=== PATIENT | female | born 1990 | race Caucasian/White ===

== ENCOUNTER 2016-08-24 05:21 | Inpatient (IN) | payer MEDICAID ==
[~2016-08-24 05:21] MED LIST: BICITRA 30 ML CUP PO SCH; Lactated Ringers 1,000 ML IV ONE; Lactated Ringers 1,000 ML IV SCH; Pepcid 20 MG VIAL IV SCH; Reglan 10 MG/2 ML IV SCH
[2016-08-24 05:42] LABS: Mean Corpuscular Hemoglobin 33.5 pg (26-32); Mean Platelet Volume 10.2 fl (6-9.5); Platelet Count 139 K/mm3 (150-450); Red Blood Count 3.46 M/mm3 (4.1-5.4); Red Cell Distribution Width 13.5 % (11.5-14.0); White Blood Count 12.1 K/mm3 (4.0-10.5)
[2016-08-24 05:58] LABS: INR 0.89 (0.8-3.0)
[2016-08-24 06:01] LABS: PTT 28.4 SECONDS (25.3-37.0)
[2016-08-24 06:08] LABS: COMPLETE URINE MICROSCOPIC? YES; Collection Type CLEAN CATCH
[2016-08-24] MEDS ORDERED: KEFZOL 1 GM ONE (06:26)
[2016-08-24 06:31] LABS: Bacteria FEW /HPF (NEGATIVE); Epithelial Cells FEW /HPF (FEW)
[2016-08-24] MEDS ORDERED: BICITRA 30 ML CUP ONE (06:40)
[2016-08-24] MEDS ORDERED: Pitocin 10 UNITS/ML IV ONE (07:43)
[2016-08-24] MEDS ORDERED: PHENYLEPHRINE HCL IJ ONE (07:43)
[2016-08-24] MEDS ORDERED: OFIRMEV 100 ML IV ONE (07:54)
[2016-08-24] MEDS ORDERED: Astramorph-Pf 5 MG/10 ML IJ ONE (07:55)
[2016-08-24] MEDS ORDERED: SUBLIMAZE 100 MCG/2 ML IV ONE (07:55)
[2016-08-24] MEDS ORDERED: DEMEROL 50 MG ONE (09:23)
[2016-08-24] MEDS ORDERED: Mylicon 80MG PO PRN (10:00)
[2016-08-24] MEDS ORDERED: Anucort-HC SUPPOSITORY PR PRN (10:00)
[2016-08-24] MEDS ORDERED: Sodium Chloride 0.9% 10 ML FLUSH Syringe IJ PRN (10:00)
[2016-08-24] MEDS ORDERED: TYLENOL EXTRA STRENGTH 500 MG PO PRN (10:00)
[2016-08-24] MEDS ORDERED: CLARITIN 10 MG PO PRN (10:00)
[2016-08-24] MEDS ORDERED: Restoril 15 MG PO PRN (10:00)
[2016-08-24] MEDS ORDERED: HOLD NARCOTIC ANALGESICS AND SEDATIVES X24 HR MC PRN (10:00)
[2016-08-24] MEDS ORDERED: CORTISONE 1% CREAM TP PRN (10:00)
[2016-08-24] MEDS ORDERED: DEMEROL 50 MG IV PRN (10:00)
[2016-08-24] MEDS ORDERED: Ambien 10 MG PO PRN (10:00)
[2016-08-24] MEDS ORDERED: LANSINOH 40 GM TOP PRN (10:00)
[2016-08-24] MEDS ORDERED: Zofran 4 MG/2 ML VIAL IV PRN (10:00)
[2016-08-24] MEDS ORDERED: MORPHINE SULFATE 2 MG INJ IV PRN (10:00)
[2016-08-24] MEDS ORDERED: Dulcolax 10 MG SUPP PR PRN (10:00)
[2016-08-24] MEDS ORDERED: Dermoplast Spray TP PRN (10:00)
[2016-08-24] MEDS ORDERED: Narcan 0.4 MG/ML IV PRN (10:00)
[2016-08-24] MEDS ORDERED: TUCKS TP PRN (10:00)
[2016-08-24] MEDS: Dextrose 5%-Lr IV Solution 1000 ML 1,000 ML IV SCH ×2 (10:07→17:54)
--- NOTE | 2016-08-24 10:17 | OP ---
SURGERY DATE: 08/24/16 SURGERY TIME: 756 PREOPERATIVE DIAGNOSIS: 1. TERM INTRAUTERINE . 2. PREVIOUS . 3. UNDESIRED FERTILITY. POSTOPERATIVE DIAGNOSIS: SAME, DELIVERED. PROCEDURE: 1. Repeat lower uterine segment transverse incision section. 2. Bilateral tubal ligation by partial salpingectomy. SURGEON: Dr. Solares. ANESTHESIA: By spinal. BRIEF HISTORY: The patient is a 26 y/o WF presenting now for elective repeat . The patient was appraised of the risks of the procedure including risk of wound infection, bleeding requiring transfusion, possible injury to intraabdominal organs, and a failure rate of the tubal procedure of 1:300. The patient verbalized her understanding and desired to have the procedure performed. DESCRIPTION OF PROCEDURE: The patient was prepped and draped in the supine position. After adequate regional anesthesia was confirmed, a Pfannenstiel incision was made over the previous scar and carried down sharply through the fascia which was divided in a horizontal fashion. The rectus muscles were then bluntly and sharply dissected away from the overlying fascia and bluntly retracted laterally. The peritoneal cavity was entered. The bladder flap was developed and the bladder was retracted inferiorly. The uterus was scored in a horizontal fashion and entered in the midline. The wound was extended using bandage scissors. A WM infant was delivered through the abdominal wound. The cord was doubly clamped and divided between the clamps and the baby was handed off for further care. The placenta was then manually removed from the uterus. The uterus was exteriorized and wrapped in moist gauze. The wound edges were the reapproximated using 1-0 chromic suture in a running, interlocking fashion. Next, the left fallopian tube was identified and elevated with a Kelin clamp. A hemostat was passed through an avascular section of the mesosalpinx and the tube was tied on either side of the elevated area. The interceding section was then excised and the exposed edges of the tube were cauterized using the Bovie. The right tube was similarly treated. The cul-de-sac area was then swabbed clear of blood and amniotic fluid and the uterus was replaced in the abdominal cavity. Paracolic gutters were then also swabbed clear of blood and amniotic fluid. The peritoneum was then repaired using 3-0 chromic suture in a running fashion. The fascia was repaired using 0 Vicryl suture in a running fashion. The skin edges were reapproximated using 4-0 Vicryl suture in a subcuticular fashion and reinforced with Steri-strips. The sponge, needle, and instrument count was reported as correct at the end of the procedure and the patient was taken back to the recovery room in good condition.
[2016-08-24] MEDS ORDERED: Naropin 0.5% 30 ML VIAL IJ ONE (10:39)
[2016-08-24] MEDS ORDERED: EPINEPHRINE 1:1000 1 ML AMP IJ ONE (10:39)
[2016-08-24] MEDS ORDERED: Decadron 4 MG INJ IV ONE (10:39)
[2016-08-24] MEDS: Colace 100 MG PO SCH ×2 (10:50→22:17)
[2016-08-24] MEDS: FERREX 150 PO SCH (10:50)
[2016-08-24] MEDS: PERCOCET TABLET 5/325MG PO PRN ×3 (10:51→22:17)
[2016-08-24] MEDS: BENADRYL 50 MG/ML IV PRN ×2 (11:58→22:17)
[2016-08-24] MEDS: Nubain 10 MG/ML IV PRN (15:28)
[2016-08-25] MEDS: Dextrose 5%-Lr IV Solution 1000 ML 1,000 ML IV SCH (01:51)
[2016-08-25] MEDS: MOTRIN 400 MG PO PRN ×4 (01:51→21:32)
[2016-08-25] MEDS: PERCOCET TABLET 5/325MG PO PRN (04:21)
[2016-08-25] MEDS: Nubain 10 MG/ML IV PRN (04:21)
[2016-08-25 05:30] LABS: Mean Platelet Volume 10.8 fl (6-9.5); Platelet Count 127 K/mm3 (150-450); Red Blood Count 2.62 M/mm3 (4.1-5.4); Red Cell Distribution Width 13.4 % (11.5-14.0); White Blood Count 15.2 K/mm3 (4.0-10.5)
[2016-08-25 05:31] LABS: Mean Corpuscular Hemoglobin 33.5 pg (26-32)
[2016-08-25 06:04] VITALS: O2SAT 99
[2016-08-25] MEDS ORDERED: Phenergan 25 MG INJ IM PRN (08:00)
[2016-08-25] MEDS ORDERED: DEMEROL 75 MG IM PRN (08:00)
[2016-08-25] MEDS: FERREX 150 PO SCH (09:10)
[2016-08-25] MEDS: Colace 100 MG PO SCH ×2 (09:10→21:32)
[2016-08-25] MEDS: Tylenol #3 Tablet PO PRN ×3 (11:46→22:33)
[2016-08-26 09:36] VITALS: BP 135/65; PULSE 89
[2016-08-26] MEDS: Colace 100 MG PO SCH (09:58)
[2016-08-26] MEDS: Tylenol #3 Tablet PO PRN (09:58)
[2016-08-26] MEDS: FERREX 150 PO SCH (09:58)
--- NOTE | 2016-08-26 11:27 | DS ---
DISCHARGE DIAGNOSIS: SECTION DELIVERY TERM INTRAUTERINE . HOSPITAL COURSE: The patient is a 26 year-old white female presented to the hospital for elective repeat section and this was performed on the morning of 08/24/2016. The patient has done well post-operatively. She has been afebrile with stable vital signs throughout her stay. The wound has looked good. She has been able to ambulate and eat without any difficulties. Her post-operative hemoglobin was 8.8, PLT count 127,000. The patient is having no problems. She was thought to be ready for discharge home on the morning of 08/26/2016 to follow up in the office this next coming Wednesday. She is to return to the hospital if she has any problems with fever, increase in pain, bleeding or redness of the wound site.
== END 2016-08-26 12:15 | disposition home or self-care (01) | DRG 766 ==
LOC: OB 05:21
PROVIDERS: ADMIT Family Medicine; ATTEND Family Medicine
PROC: 10D00Z1 Extraction of Products of Conception, Low, Open Approach (ICD-10-PCS; principal; 2016-08-24)
PROC: 0UB70ZZ Excision of Bilateral Fallopian Tubes, Open Approach (ICD-10-PCS; 2016-08-24)
DX: O34.211 Maternal care for low transverse scar from previous cesarean delivery (principal); Z3A.39 39 weeks gestation of pregnancy; Z37.0 Single live birth; Z30.2 Encounter for sterilization
CPT/HCPCS: 01961; 36415; 64425; 76942; 80307; 81000; 85027; 85610; 85730; 86850; 86900; 86901; 87086; 88302; 94799; J0171; J0690; J1100; J1200; J2175; J2274; J2300; J2370; J2590; J2795; J3010; L0625

== ENCOUNTER 2017-03-10 22:04 | Emergency (ER) | payer MEDICAID, OTHER ==
[2017-03-10] MEDS ORDERED: Zofran 4 MG/2 ML VIAL IV ONE (22:48)
[2017-03-10] MEDS ORDERED: Sodium Chloride 0.9% 1000 ML 1,000 ML IV STA (22:48)
[2017-03-10] MEDS ORDERED: Sodium Chloride 0.9% 1000 ML 1,000 ML ONE (22:52)
[2017-03-10] MEDS ORDERED: Zofran 4 MG/2 ML VIAL ONE (22:52)
[2017-03-10 23:00] LABS: BASOPHIL % 0.1 % (0.0-0.4); Eosinophil % 0.8 % (0.00-5.0); Granulocytes % 47.6 % (36.0-66.0); Mean Cell Volume 95.7 fl (78-100); Mean Platelet Volume 9.8 fl (6-9.5); Monocytes % 6.5 % (0.0-12.0); Platelet Count 241 K/mm3 (150-450); Red Blood Count 4.19 M/mm3 (4.1-5.4); Red Cell Distribution Width 14.2 % (11.5-14.0); White Blood Count 8.6 K/mm3 (4.0-10.5)
[2017-03-10] MEDS ORDERED: Hydromorphone 1 mg/ml Ampule IV ONE (23:08)
[2017-03-10 23:10] LABS: ALBUMIN 4.3 g/dL (3.4-5.0); ALKALINE PHOSPHATASE 84 U/L (46-116); BLOOD UREA NITROGEN 7 mg/dL (9-20); CHLORIDE 101 mEq/L (98-107); Glucose 99 MG/DL (70-110); LIPASE 70 U/L (73-393); Potassium 3.5 mEq/L (3.5-5.1); SGOT/AST 12 U/L (15-37); SGPT/ALT 20 U/L (12-78); SODIUM 142 mEq/L (136-145); Total Protein 8.3 gm/dL (6.4-8.2)
[2017-03-10] MEDS ORDERED: Hydromorphone 1 mg/ml Ampule ONE (23:13)
[2017-03-10 23:27] LABS: Bilirubin NEGATIVE (NEGATIVE); Blood NEGATIVE Ery/ul (0-5); COMPLETE URINE MICROSCOPIC? YES; Collection Type CLEAN CATCH; Glucose NEGATIVE (NEGATIVE); Leukocyte Esterase 1+ (NEGATIVE); Mucus SLIGHT /HPF (NEGATIVE)
[2017-03-10 23:28] LABS: ADD URINE CULTURE? YES (NO); Bacteria FEW /HPF (NEGATIVE); Epithelial Cells MODERATE /HPF (FEW)
--- NOTE | 2017-03-10 23:29 | ERPHSYRPT ---
- History of Present Illness Time Seen by Provider: 03/10/17 22:20 Historian: patient Exam Limitations: clinical condition Patient Subjective Stated Complaint: pt states she has been having abd pain for 2 week, has been having diarrhea with bright red blood for approx 4 days. states the worst pain is in lt upper quad. Triage Nursing Assessment: pt awake and alert. answers questions approp. pt ambulatory with steady gait noted. respirations nonlabored with lungs cta. abd soft, bowel sounds present. no stool at this time. Physician History: PATIENT COMPLAINS OF WATERY DIARRHEA X 10 EPISODES DAILY FOR 2 WEEKS ASSOCIATED WITH GENERALIZED ABDOMINAL PAIN WITH OCCASIONAL BLOOD IN STOOL. DENIES FEVER, CHILLS, URINARY SYMPTOMS. Timing/Duration: week(s) Activities at Onset: none Quality: cramping Abdominal Pain Onset Location: generalized abdomen Pain Radiation: no radiation Severity of Pain-Max: moderate Severity of Pain-Current: moderate Modifying Factors: Improves With: nothing Associated Symptoms: diarrhea, nausea, weakness Previous symptoms: no prior history Allergies/Adverse Reactions: cefixime [From Suprax] Allergy (Intermediate, Verified 03/10/17 22:22) Hives Home Medications: No Home Meds 1 ea UD 03/10/17 [History] Hx Tetanus, Diphtheria Vaccination/Date Given: Yes (up to date) Hx Influenza Vaccination/Date Given: Yes Hx Pneumococcal Vaccination/Date Given: No Immunizations Up to Date: Yes - Review of Systems Constitutional: No Fever, No Chills Eyes: No Symptoms Ears, Nose, & Throat: No Symptoms Respiratory: No Cough, No Dyspnea Cardiac: No Chest Pain, No Edema, No Syncope Abdominal/Gastrointestinal: Abdominal Pain, Nausea, Diarrhea Genitourinary Symptoms: No Dysuria Musculoskeletal: No Back Pain, No Neck Pain Skin: No Rash Neurological: No Dizziness, No Focal Weakness, No Sensory Changes Psychological: No Symptoms Endocrine: No Symptoms All Other Systems: Reviewed and Negative - Past Medical History Pertinent Past Medical History: Yes Neurological History: No Pertinent History ENT History: No Pertinent History Cardiac History: No Pertinent History Respiratory History: Asthma Endocrine Medical History: No Pertinent History Musculoskeletal History: No Pertinent History GI Medical History: GERD History: No Pertinent History Psycho-Social History: Anxiety, Depression Female Reproductive Disorders: No Pertinent History - Past Surgical History Past Surgical History: Yes Neuro Surgical History: No Pertinent History Cardiac: No Pertinent History Respiratory: No Pertinent History Gastrointestinal: No Pertinent History Genitourinary: No Pertinent History Musculoskeletal: No Pertinent History Female Surgical History: Section, Tubal Ligation - Social History Smoking Status: Current every day smoker How long have you smoked: 10yrs Exposure to second hand smoke: Yes Drug Use: none Patient Lives Alone: No - Female History Hx Last Menstrual Period: 1 week Hx Now: Yes - Nursing Vital Signs Nursing Vital Signs: Initial Vital Signs Temperature 98.1 F 03/10/17 22:13 Pulse Rate 98 H 03/10/17 22:13 Respiratory Rate 18 03/10/17 22:13 Blood Pressure 142/88 03/10/17 22:13 O2 Sat by Pulse Oximetry 99 03/10/17 22:13 Pain Scale Pain Intensity 10 - Physical Exam General Appearance: no apparent distress, alert Eye Exam: PERRL/EOMI, eyes nml inspection Ears, Nose, Throat Exam: normal ENT inspection, pharynx normal, moist mucous membranes Neck Exam: normal inspection, non-tender, supple, full range of motion Respiratory Exam: normal breath sounds, lungs clear, No respiratory distress Cardiovascular Exam: regular rate/rhythm, normal heart sounds Gastrointestinal/Abdomen Exam: soft, normal bowel sounds, tenderness (MINIMAL PERIUMBILICAL TENDERNESS), No mass Back Exam: normal inspection, normal range of motion, No CVA tenderness, No vertebral tenderness Extremity Exam: normal inspection, normal range of motion, pelvis stable Neurologic Exam: alert, oriented x 3, cooperative, normal mood/affect, nml cerebellar function, sensation nml, No motor deficits Skin Exam: normal color, warm, dry SpO2 Interpretation: normal SpO2: 97 Oxygen Delivery: Room Air - CT Exams Abdomen/Pelvis CT Interpretation: Tele-radiologist Report (FINDINGS OF SEVERAL MILDLY DISTENDED LOOPS OF SMALL BOWEL NONSPECIFIC POSSIBLY CONSISTENT WITH MILD ENTERITIS. MILDLY PROMINENT MESENTERIC AND AORTOCAVAL LYMPH NODES) Ordered Tests: Active Orders 24 hr Category Date Time Status Clean Catch Urine Specimen STAT Care 03/10/17 22:17 Active IV Insertion STAT Care 03/10/17 22:17 Active ABDOMEN AND PELVIS W CONTRAST [CT] Stat Exams 03/10/17 22:49 Taken AMYLASE Stat Lab 03/10/17 22:15 Completed BLOOD CULTURE Stat Lab 03/10/17 23:09 Received CBC W DIFF Stat Lab 03/10/17 22:15 Completed CMP Stat Lab 03/10/17 22:15 Completed CULTURE,URINE Stat Lab 03/10/17 22:15 Received LIPASE Stat Lab 03/10/17 22:15 Completed UA W/ MICROSCOPIC Stat Lab 03/10/17 22:15 Completed Medication Summary Discontinued Medications Generic Name Dose Route Start Last Admin Trade Name Jenny PRN Reason Stop Dose Admin Hydromorphone HCl 1 mg 03/10/17 23:08 03/10/17 23:15 Hydromorphone 1 Mg/Ml Ampule IV 03/10/17 23:09 1 mg STAT ONE Administration Hydromorphone HCl Confirm 03/10/17 23:13 Hydromorphone 1 Mg/Ml Ampule Administered 03/10/17 23:14 Dose 1 mg .ROUTE .STK-MED ONE Sodium Chloride 1,000 mls @ 999 mls/hr 03/10/17 22:48 03/10/17 22:57 Sodium Chloride 0.9% 1000 Ml IV 03/10/17 23:48 999 mls/hr .Q1H1M STA Administration Sodium Chloride Confirm 03/10/17 22:52 Sodium Chloride 0.9% 1000 Ml Administered 03/10/17 22:53 Dose 1,000 mls @ ud .ROUTE .STK-MED ONE Levofloxacin/Dextrose 500 mg in 100 mls @ 100 mls/hr 03/10/17 23:31 03/10/17 23:41 Levofloxacin 500mg/100ml D5w IV 03/11/17 00:30 100 mls/hr STAT STA Administration Levofloxacin/Dextrose Confirm 03/10/17 23:34 Levofloxacin 500mg/100ml D5w Administered 03/10/17 23:35 Dose 500 mg in 100 mls @ ud IV .STK-MED ONE Ketorolac Tromethamine 30 mg 03/11/17 00:29 03/11/17 00:34 Toradol 30 Mg Injection IV 03/11/17 00:30 30 mg STAT ONE Administration Ketorolac Tromethamine Confirm 03/11/17 00:32 Toradol 30 Mg Injection Administered 03/11/17 00:33 Dose 30 mg .ROUTE .STK-MED ONE Ondansetron HCl 4 mg 03/10/17 22:48 03/10/17 22:58 Zofran 4 Mg/2 Ml Vial IV 03/10/17 22:49 4 mg STAT ONE Administration Ondansetron HCl Confirm 03/10/17 22:52 Zofran 4 Mg/2 Ml Vial Administered 03/10/17 22:53 Dose 4 mg .ROUTE .STK-MED ONE Lab/Rad Data: Laboratory Result Diagrams 03/10/17 22:15 03/10/17 22:15 Laboratory Results 03/10/17 03/10/17 03/10/17 Range/Units 22:15 22:15 22:15 WBC 8.6 (4.0-10.5) K/mm3 RBC 4.19 (4.1-5.4) M/mm3 Hgb 13.0 (12.0-16.0) gm/dl Hct 40.1 (35-47) % MCV 95.7 (78-100) fl MCH 31.0 (26-32) pg MCHC 32.4 (32-36) g/dl RDW 14.2 H (11.5-14.0) % Plt Count 241 (150-450) K/mm3 MPV 9.8 H (6-9.5) fl Gran % 47.6 (36.0-66.0) % Lymphocytes % 45.0 H (24.0-44.0) % Monocytes % 6.5 (0.0-12.0) % Eosinophils % 0.8 (0.00-5.0) % Basophils % 0.1 (0.0-0.4) % Basophils # 0.01 (0-0.4) Sodium 142 (136-145) mEq/L Potassium 3.5 (3.5-5.1) mEq/L Chloride 101 (98-107) mEq/L Carbon Dioxide 29.0 (21-32) mEq/L Anion Gap 15.0 (5-15) MEQ/L BUN 7 L (9-20) mg/dL Creatinine 0.81 (0.55-1.30) mg/dl Estimated GFR > 60 ML/MIN Glucose 99 (70-110) MG/DL Calcium 9.0 (8.5-10.1) mg/dL Total Bilirubin 0.30 (0.2-1.0) mg/dL AST 12 L (15-37) U/L ALT 20 (12-78) U/L Alkaline Phosphatase 84 (46-116) U/L Serum Total Protein 8.3 H (6.4-8.2) gm/dL Albumin 4.3 (3.4-5.0) g/dL Amylase 25 (25-115) U/L Lipase 70 L (73-393) U/L Ur Collection Type CLEAN CATCH Urine Color YELLOW (YELLOW) Urine Appearance CLEAR (CLEAR) Urine pH 7.0 (5-6) Ur Specific [place] 1.010 (1.005-1.025) Urine Protein NEGATIVE (Negative) Urine Ketones NEGATIVE (NEGATIVE) Urine Blood NEGATIVE (0-5) Edgard/ul Urine Nitrite NEGATIVE (NEGATIVE) Urine Bilirubin NEGATIVE (NEGATIVE) Urine Urobilinogen NORMAL (0-1) mg/dL Ur Leukocyte Esterase 1+ (NEGATIVE) Urine Microscopic RBC 2-5 (0-2) /HPF Urine Microscopic WBC 5-10 (0-5) /HPF Ur Epithelial Cells MODERATE (FEW) /HPF Urine Bacteria FEW (NEGATIVE) /HPF Urine Mucus SLIGHT (NEGATIVE) /HPF Urine Glucose NEGATIVE (NEGATIVE) mg/dL Specimen Received 03/10/17 2215 - Progress Progress Note: 03/10/17 23:28 PATIENT ADMINISTERED IV NORMAL SALINE 1 LITER OVER 1 HOUR, ZOFRAN 4MG. DILAUDID 1MG IV, AFTER 2 SETS OF BLOOD CULTURES, LEVAQUIN 500MG IVPB 03/11/17 00:51 Counseled pt/family regarding: lab results, diagnosis, need for follow-up, rad results - Departure Time of Disposition: 01:04 Departure Disposition: Home Clinical Impression: ACUTE DIARRHEA, ABDOMINAL PAIN, URINARY TRACT INFECTION Condition: Stable Critical Care Time: No Additional Instructions: ANTIBIOTIC LEVAQUIN 500MG DAILY FOR 10 DAYS. NORCO 10/325 EVERY 4 HOURS FOR PAIN. ZOFRAN 4MG EVERY 4 HOURS FOR NAUSEA. FOLLOWUP WITH FAMILY PHYSICIAN IN 1 WEEK FOR FOR EVALUATION. Prescriptions: Hydrocodone/APAP 10/325 mg [[place] 10/325 MG Tablet] 1 tab PO Q4H PRN PRN # 10 tablet PRN Reason: Pain Ondansetron [Zofran Odt] 4 mg PO Q4HPRN PRN #6 tab.rapdis PRN Reason: Nausea Levofloxacin [Levaquin] 500 mg PO DAILY #10 tablet
[2017-03-10] MEDS ORDERED: Levofloxacin 500MG/100ML D5W 500 MG/100 ML BAG IV STA (23:31)
[2017-03-10] MEDS ORDERED: Levofloxacin 500MG/100ML D5W 500 MG/100 ML BAG IV ONE (23:34)
[2017-03-11] MEDS ORDERED: TORAdol 30 mg Injection IV ONE (00:29)
[2017-03-11] MEDS ORDERED: TORAdol 30 mg Injection ONE (00:32)
[2017-03-11 01:07] VITALS: BP 106/53; PULSE 68; O2SAT 96
--- NOTE | 2017-03-11 08:54 | XRAY ---
Indication: Left upper quadrant pain, nausea, and diarrhea. Multiple contiguous axial images obtained through the abdomen and pelvis using 80 cc Isovue 370 contrast only. Comparison: June 15, 2012. Lung bases clear. Heart is not enlarged. Stomach is distended with food. Noncontrasted stomach and bowel loops appear nonobstructed. There are now mild fluid distended small bowel loops with mild wall thickening/enhancement and fluid leveling favoring enteritis. Normal appendix. No free fluid/air. Remaining liver, gallbladder, pancreas, spleen, adrenal glands, kidneys, ureters, bladder, uterus, and aorta appear unremarkable. Small scattered mesenteric and periaortic nodes, none pathologically enlarged, possibly adenitis. Osseous structures intact again with bilateral L3 spondylolysis but no spondylolisthesis. Stable tiny fatty umbilical hernia. Impression: 1. Mild fluid distended small bowel loops with wall thickening/enhancement and fluid leveling favoring enteritis. 2. Scattered small mesenteric and periaortic nodes possibly adenitis. 3. Stable tiny fatty umbilical hernia and bilateral L3 spondylolysis without spondylolisthesis. Comment: Preliminary interpretation was made by [facility]. No discrepancy. CT DI 20.53
== END 2017-03-11 01:22 | disposition home or self-care (01) ==
LOC: ED 22:04
DX: R19.7 Diarrhea, unspecified (principal); R10.9 Unspecified abdominal pain; N39.0 Urinary tract infection, site not specified
CPT/HCPCS: 36000; 36415; 74177; 80053; 81000; 82150; 83690; 85025; 87040; 87086; 96360; 96365; 96374; 96375; 99284; J1170; J1885; J1956; J2405

== ENCOUNTER 2018-10-08 20:20 | Emergency (ER) | payer OTHER ==
[2018-10-08] MEDS ORDERED: TORAdol 30 mg Injection IV ONE (20:30)
[2018-10-08] MEDS ORDERED: Sodium Chloride 0.9% 1000 ML 1,000 ML IV STA (20:30)
[2018-10-08] MEDS ORDERED: Zofran 4 MG/2 ML VIAL IV ONE (20:30)
[2018-10-08] MEDS ORDERED: Sodium Chloride 0.9% 1000 ML 1,000 ML ONE (20:46)
[2018-10-08] MEDS ORDERED: Zofran 4 MG/2 ML VIAL ONE (20:46)
[2018-10-08] MEDS ORDERED: TORAdol 30 mg Injection ONE (20:46)
[2018-10-08 20:58] LABS: BASOPHIL % 0.2 % (0.0-0.4); Basophil (Absolute #) 0.02 (0-0.4); Eosinophil % 1.3 % (0.00-5.0); Eosinophil (Absolute #) 0.12 (0-0.5); Granulocyte Absolute (ANC) 4.77 (1.4-6.9); Granulocytes % 50.9 % (36.0-66.0); Hematocrit 40.2 % (35-47); Hemoglobin 13.4 gm/dl (12.0-16.0); Lymphocyte (Absolute #) 3.68 (1.0-4.6); Lymphocytes % 39.2 % (24.0-44.0); Mean Cell Volume 99.5 fl (78-100); Mean Corpuscular Hgb Concent. 33.3 g/dl (32-36); Mean Platelet Volume 9.1 fl (6-9.5); Monocyte (Absolute #) 0.79 (0.0-1.3); Monocytes % 8.4 % (0.0-12.0); Platelet Count 216 K/mm3 (150-450); Red Blood Count 4.04 M/mm3 (4.1-5.4); Red Cell Distribution Width 12.2 % (11.5-14.0); White Blood Count 9.4 K/mm3 (4.0-10.5)
[2018-10-08 21:05] LABS: Mean Corpuscular Hemoglobin 33.1 pg (26-32)
[2018-10-08 21:07] LABS: Appearance CLOUDY (CLEAR); Bacteria MODERATE /HPF (NEGATIVE); Bilirubin NEGATIVE (NEGATIVE); Blood NEGATIVE Ery/ul (0-5); Epithelial Cells MODERATE /HPF (FEW); Glucose NEGATIVE (NEGATIVE); Ketones TRACE (NEGATIVE); Leukocyte Esterase LARGE (NEGATIVE); Mucus MANY /HPF (NEGATIVE); Nitrite NEGATIVE (NEGATIVE); Protein,Urine Dip 100 (Negative); Specific Gravity 1.027 (1.005-1.025); Urobilinogen 2 mg/dL (0-1)
[2018-10-08 21:08] LABS: ALBUMIN 4.8 g/dL (3.5-5.0); ALKALINE PHOSPHATASE 93 U/L (38-126); AMYLASE 60 U/L (30-110); BLOOD UREA NITROGEN 11 mg/dL (7-17); CHLORIDE 103 mmol/L (98-107); Calcium 9.6 mg/dL (8.4-10.2); Carbon Dioxide 29 mmol/L (22-30); Creatinine 1 0.82 mg/dL (0.52-1.04); Glucose 95 mg/dL (74-106); LIPASE 46 U/L (23-300); SGOT/AST 30 U/L (14-36); SGPT/ALT 39 U/L (0-35); SODIUM 141 mmol/L (137-145)
[2018-10-08] MEDS ORDERED: MORPHINE SULFATE 2 MG INJ IV ONE (21:11)
[2018-10-08] MEDS ORDERED: Cipro 500 MG PO STA (21:15)
[2018-10-08 21:16] LABS: Amphetamine,Urine NEGATIVE (NEGATIVE); Barbiturate,Urine NEGATIVE (NEGATIVE); Benzodiazepine,Urine NEGATIVE (NEGATIVE); Cocaine,Urine NEGATIVE (NEGATIVE); Methadone,Urine NEGATIVE (NEGATIVE); Opiate,Urine NEGATIVE (NEGATIVE); PCP,Urine NEGATIVE (NEGATIVE); THC,Urine POSITIVE (NEGATIVE)
[2018-10-08] MEDS ORDERED: MORPHINE SULFATE 2 MG INJ ONE (21:20)
[2018-10-08] MEDS ORDERED: Cipro 500 MG ONE (21:22)
--- NOTE | 2018-10-09 00:26 | ERPHSYRPT ---
- History of Present Illness Source: patient Exam Limitations: no limitations Patient Subjective Stated Complaint: Flank pain 8/10 Triage Nursing Assessment: Patient ambulated back to ED and transferred self to bed. Patient currently incaratated at [facility]. Patient A+OX 3. Patient states she started having left sided flank pain radiating to abdomen early this am. Pain is 8/10. Patient was given Ibuprofen and Zofran at half-way. Patient has been vomiting and having diarrhea as well. Abdomen round and soft with BS X 4. Lungs clear a/p charles. No edema present. Physician History: Pt is a 28 y/o female that presented to the ED from half-way, secondary to severe L sided flank pain. Pt denies dysuria, frequency and urgency. No F/C/S. Pt states, the pain is uncontrolled, and she needs something for the pain. No SOB or cough. No N/V/D. Timing/Duration: today Activites at Onset: none Onset Location: left flank (and LUQ) Pain Radiation: left flank (and LUQ) Severity of Pain-Max: severe Severity of Pain-Current: severe Prior abdominal problems: none Modifying Factors: Improves With: analgesics Allergies/Adverse Reactions: cefixime [From Suprax] Allergy (Intermediate, Verified 10/08/18 20:22) Hives Home Medications: No Home Meds [No Home Meds] 1 [facility] JENNI 03/10/17 [History] Hx Tetanus, Diphtheria Vaccination/Date Given: Yes (up to date) Hx Influenza Vaccination/Date Given: No Hx Pneumococcal Vaccination/Date Given: No - Review of Systems Constitutional: No Fever, No Chills Eyes: No Symptoms Ears, Nose, & Throat: No Symptoms Respiratory: No Cough, No Dyspnea Cardiac: No Chest Pain, No Edema, No Syncope Abdominal/Gastrointestinal: Abdominal Pain Genitourinary Symptoms: Flank Pain (left) Musculoskeletal: No Back Pain, No Neck Pain Neurological: No Dizziness, No Focal Weakness, No Sensory Changes - Past Medical History Pertinent Past Medical History: Yes Neurological History: No Pertinent History ENT History: No Pertinent History Cardiac History: No Pertinent History Respiratory History: Asthma Endocrine Medical History: No Pertinent History Musculoskeletal History: No Pertinent History GI Medical History: GERD History: No Pertinent History Psycho-Social History: Anxiety, Depression Female Reproductive Disorders: No Pertinent History - Past Surgical History Past Surgical History: Yes Neuro Surgical History: No Pertinent History Cardiac: No Pertinent History Respiratory: No Pertinent History Gastrointestinal: No Pertinent History Genitourinary: No Pertinent History Musculoskeletal: No Pertinent History Female Surgical History: Section, Tubal Ligation Other Surgical History: X 3 - Social History Smoking Status: Current every day smoker How long have you smoked: 11 years Exposure to second hand smoke: Yes Drug Use: none Patient Lives Alone: No - Female History Hx Last Menstrual Period: 1 week ago Hx Now: No - Nursing Vital Signs Nursing Vital Signs: Initial Vital Signs Temperature 98.1 F 10/08/18 20:29 Pulse Rate 98 H 10/08/18 20:29 Respiratory Rate 18 10/08/18 20:29 Blood Pressure 120/72 10/08/18 20:29 O2 Sat by Pulse Oximetry 95 10/08/18 20:29 Pain Scale Pain Intensity 10 - Physical Exam General Appearance: no apparent distress, alert Eye Exam: PERRL/EOMI, eyes nml inspection Ears, Nose, Throat Exam: normal ENT inspection, TMs normal, pharynx normal, moist mucous membranes Neck Exam: normal inspection, non-tender, supple, full range of motion Respiratory Exam: normal breath sounds, lungs clear, No respiratory distress Cardiovascular Exam: regular rate/rhythm, normal heart sounds, normal peripheral pulses Gastrointestinal/Abdomen Exam: soft, tenderness (LUQ), No mass Back Exam: CVA tenderness (on the left) Extremity Exam: normal inspection, normal range of motion, pelvis stable Neurologic Exam: alert, oriented x 3, cooperative, axle polisher II-XII nml as tested, normal mood/affect, sensation nml, No motor deficits SpO2: 95 - Course Nursing assessment & vital signs reviewed: Yes - CT Exams Abdomen/Pelvis CT Interpretation: Negative (No acute abnormality) Ordered Tests: Active Orders 24 hr Category Date Time Status IV Insertion STAT Care 10/08/18 20:30 Active ABDOMEN AND PELVIS W CONTRAST [CT] Stat Exams 10/08/18 20:31 Taken AMYLASE Stat Lab 10/08/18 20:46 Completed CBC W DIFF Stat Lab 10/08/18 20:46 Completed CMP Stat Lab 10/08/18 20:46 Completed CULTURE,URINE Stat Lab 10/08/18 20:27 Received HCG,QUALITATIVE URINE Stat Lab 10/08/18 20:27 Completed LIPASE Stat Lab 10/08/18 20:46 Completed UA W/RFX UR CULTURE Stat Lab 10/08/18 20:27 Completed Urine Triage Profile Stat Lab 10/08/18 20:27 Completed Medication Summary Discontinued Medications Generic Name Dose Route Start Last Admin Trade Name Jenny PRN Reason Stop Dose Admin Ciprofloxacin 500 mg 10/08/18 21:15 10/08/18 21:24 Cipro 500 Mg PO 10/08/18 21:16 500 mg ONCE STA Administration Ciprofloxacin Confirm 10/08/18 21:22 Cipro 500 Mg Administered 10/08/18 21:23 Dose 500 mg .ROUTE .STK-MED ONE Sodium Chloride 1,000 mls @ 999 mls/hr 10/08/18 20:30 10/08/18 21:52 Sodium Chloride 0.9% 1000 Ml IV 10/08/18 21:30 Infused .Q1H1M STA Infusion Sodium Chloride Confirm 10/08/18 20:46 Sodium Chloride 0.9% 1000 Ml Administered 10/08/18 20:47 Dose 1,000 mls @ ud .ROUTE .STK-MED ONE Ketorolac Tromethamine 30 mg 10/08/18 20:30 10/08/18 20:48 Toradol 30 Mg Injection IV 10/08/18 20:31 30 mg STAT ONE Administration Ketorolac Tromethamine Confirm 10/08/18 20:46 Toradol 30 Mg Injection Administered 10/08/18 20:47 Dose 30 mg .ROUTE .STK-MED ONE Morphine Sulfate 2 mg 10/08/18 21:11 10/08/18 21:24 Morphine Sulfate 2 Mg Inj IV 10/08/18 21:12 2 mg STAT ONE Administration Morphine Sulfate Confirm 10/08/18 21:20 Morphine Sulfate 2 Mg Inj Administered 10/08/18 21:21 Dose 2 mg .ROUTE .STK-MED ONE Ondansetron HCl 4 mg 10/08/18 20:30 10/08/18 20:49 Zofran 4 Mg/2 Ml Vial IV 10/08/18 20:31 4 mg STAT ONE Administration Ondansetron HCl Confirm 10/08/18 20:46 Zofran 4 Mg/2 Ml Vial Administered 10/08/18 20:47 Dose 4 mg .ROUTE .STK-MED ONE Lab/Rad Data: Laboratory Result Diagrams 10/08/18 20:46 10/08/18 20:46 Laboratory Results 10/08/18 10/08/18 10/08/18 Range/Units 20:46 20:46 20:27 WBC 9.4 (4.0-10.5) K/mm3 RBC 4.04 L (4.1-5.4) M/mm3 Hgb 13.4 (12.0-16.0) gm/dl Hct 40.2 (35-47) % MCV 99.5 (78-100) fl MCH 33.1 H (26-32) pg MCHC 33.3 (32-36) g/dl RDW 12.2 (11.5-14.0) % Plt Count 216 (150-450) K/mm3 MPV 9.1 (6-9.5) fl Gran % 50.9 (36.0-66.0) % Eos # (Auto) 0.12 (0-0.5) Absolute Lymphs (auto) 3.68 (1.0-4.6) Absolute Monos (auto) 0.79 (0.0-1.3) Lymphocytes % 39.2 (24.0-44.0) % Monocytes % 8.4 (0.0-12.0) % Eosinophils % 1.3 (0.00-5.0) % Basophils % 0.2 (0.0-0.4) % Absolute Granulocytes 4.77 (1.4-6.9) Basophils # 0.02 (0-0.4) Sodium 141 (137-145) mmol/L Potassium 4.0 (3.5-5.1) mmol/L Chloride 103 (98-107) mmol/L Carbon Dioxide 29 (22-30) mmol/L Anion Gap 14.0 (5-15) MEQ/L BUN 11 (7-17) mg/dL Creatinine 0.82 (0.52-1.04) mg/dL Estimated GFR > 60.0 ML/MIN Glucose 95 (74-106) mg/dL Calcium 9.6 (8.4-10.2) mg/dL Total Bilirubin 0.30 (0.2-1.3) mg/dL AST 30 (14-36) U/L ALT 39 H (0-35) U/L Alkaline Phosphatase 93 (38-126) U/L Serum Total Protein 8.0 (6.3-8.2) g/dL Albumin 4.8 (3.5-5.0) g/dL Amylase 60 (30-110) U/L Lipase 46 (23-300) U/L Urine Color (YELLOW) Urine Appearance (CLEAR) Urine pH (5-6) Ur Specific [place] (1.005-1.025) Urine Protein (Negative) Urine Ketones (NEGATIVE) Urine Blood (0-5) Edgard/ul Urine Nitrite (NEGATIVE) Urine Bilirubin (NEGATIVE) Urine Urobilinogen (0-1) mg/dL Ur Leukocyte Esterase (NEGATIVE) Urine WBC (Auto) (0-5) /HPF Urine RBC (Auto) (0-2) /HPF U Hyaline Cast (Auto) (0-2) /LPF U Epithel Cells (Auto) (FEW) /HPF Urine Bacteria (Auto) (NEGATIVE) /HPF Calcium Oxalate Crystal (NEGATIVE) /HPF Other Casts (Auto) (NEGATIVE) /LPF Urine Mucus (Auto) (NEGATIVE) /HPF Urine Culture Reflexed (NO) Urine Glucose (NEGATIVE) mg/dL Urine HCG, Qual NEGATIVE (Negative) Urine Opiates Level (NEGATIVE) Ur Methadone (NEGATIVE) Urine Barbiturates (NEGATIVE) Ur Phencyclidine (PCP) (NEGATIVE) Urine Amphetamine (NEGATIVE) U Benzodiazepine Level (NEGATIVE) Urine Cocaine (NEGATIVE) Urine Marijuana (THC) (NEGATIVE) 10/08/18 10/08/18 Range/Units 20:27 20:27 WBC (4.0-10.5) K/mm3 RBC (4.1-5.4) M/mm3 Hgb (12.0-16.0) gm/dl Hct (35-47) % MCV (78-100) fl MCH (26-32) pg MCHC (32-36) g/dl RDW (11.5-14.0) % Plt Count (150-450) K/mm3 MPV (6-9.5) fl Gran % (36.0-66.0) % Eos # (Auto) (0-0.5) Absolute Lymphs (auto) (1.0-4.6) Absolute Monos (auto) (0.0-1.3) Lymphocytes % (24.0-44.0) % Monocytes % (0.0-12.0) % Eosinophils % (0.00-5.0) % Basophils % (0.0-0.4) % Absolute Granulocytes (1.4-6.9) Basophils # (0-0.4) Sodium (137-145) mmol/L Potassium (3.5-5.1) mmol/L Chloride (98-107) mmol/L Carbon Dioxide (22-30) mmol/L Anion Gap (5-15) MEQ/L BUN (7-17) mg/dL Creatinine (0.52-1.04) mg/dL Estimated GFR ML/MIN Glucose (74-106) mg/dL Calcium (8.4-10.2) mg/dL Total Bilirubin (0.2-1.3) mg/dL AST (14-36) U/L ALT (0-35) U/L Alkaline Phosphatase (38-126) U/L Serum Total Protein (6.3-8.2) g/dL Albumin (3.5-5.0) g/dL Amylase (30-110) U/L Lipase (23-300) U/L Urine Color GHASSAN (YELLOW) Urine Appearance CLOUDY (CLEAR) Urine pH 6.0 (5-6) Ur Specific [place] 1.027 (1.005-1.025) Urine Protein 100 (Negative) Urine Ketones TRACE (NEGATIVE) Urine Blood NEGATIVE (0-5) Edgard/ul Urine Nitrite NEGATIVE (NEGATIVE) Urine Bilirubin NEGATIVE (NEGATIVE) Urine Urobilinogen 2 (0-1) mg/dL Ur Leukocyte Esterase LARGE (NEGATIVE) Urine WBC (Auto) 11-15 (0-5) /HPF Urine RBC (Auto) 6-10 (0-2) /HPF U Hyaline Cast (Auto) 3-5 (0-2) /LPF U Epithel Cells (Auto) MODERATE (FEW) /HPF Urine Bacteria (Auto) MODERATE (NEGATIVE) /HPF Calcium Oxalate Crystal 11-25 (NEGATIVE) /HPF Other Casts (Auto) 5-10 (NEGATIVE) /LPF Urine Mucus (Auto) MANY (NEGATIVE) /HPF Urine Culture Reflexed YES (NO) Urine Glucose NEGATIVE (NEGATIVE) mg/dL Urine HCG, Qual (Negative) Urine Opiates Level NEGATIVE (NEGATIVE) Ur Methadone NEGATIVE (NEGATIVE) Urine Barbiturates NEGATIVE (NEGATIVE) Ur Phencyclidine (PCP) NEGATIVE (NEGATIVE) Urine Amphetamine NEGATIVE (NEGATIVE) U Benzodiazepine Level NEGATIVE (NEGATIVE) Urine Cocaine NEGATIVE (NEGATIVE) Urine Marijuana (THC) POSITIVE (NEGATIVE) - Progress Progress: improved Air Movement: fair Progress Note: 10/09/18 00:26 Pt was treated in the ER with Levaquin for UTI. Abdominal CT was negative, and labs show utinalysis that was positive for infection. Pt's pain was treated with Morphine and Toradol. Pt is cleared to go back to half-way on Cipro PO. Blood Culture(s) Obtained: No Antibiotics given: Yes Counseled pt/family regarding: need for follow-up (With physician in half-way) - Departure Time of Disposition: 00:28 Departure Disposition: [facility] Clinical Impression: UTI (urinary tract infection) Condition: Stable Critical Care Time: No Referrals: SAULO GONG [Primary Care Provider] - Prescriptions: Ciprofloxacin [Cipro 500 MG] 500 mg PO BID #10 tablet
[2018-10-09 00:58] VITALS: BP 95/55; PULSE 80; O2SAT 98
--- NOTE | 2018-10-09 07:40 | XRAY ---
Indication: Left flank pain. Nausea, vomiting, and diarrhea. Multiple contiguous axial images obtained through the abdomen and pelvis using 80 cc Isovue 370 contrast. Comparison: March 10, 2017. Lung bases remain clear. Heart is not enlarged. Noncontrasted stomach and bowel loops appear nonobstructed. Normal air-filled appendix. No free fluid/air. There is mild diffuse scattered colonic fecal debris throughout. Remaining liver, gallbladder, pancreas, spleen, adrenal glands, kidneys, ureters, bladder, uterus, and aorta appear unremarkable. No pathologic retroperitoneal lymphadenopathy. Osseous structures intact. Stable bilateral L3 spondylolysis without spondylolisthesis. Stable small fatty umbilical hernia. Impression: 1. Mild fecal stasis without obstruction. 2. Stable fatty umbilical hernia. 3. Remaining CT abdomen/pelvis with contrast exam is negative. Comment: Preliminary interpretation was made by [facility]. No critical discrepancy. CTDI 23.05
== END 2018-10-09 00:59 | disposition home or self-care (01) ==
LOC: ED 20:20
DX: N39.0 Urinary tract infection, site not specified (principal); J45.909 Unspecified asthma, uncomplicated; K21.9 Gastro-esophageal reflux disease without esophagitis; F41.9 Anxiety disorder, unspecified; F32.9 Major depressive disorder, single episode, unspecified
CPT/HCPCS: 36000; 36415; 74177; 80053; 80307; 81001; 82150; 83690; 84703; 85025; 87086; 96360; 96374; 96375; 99284; J1885; J2270; J2405; A9270-GY

== ENCOUNTER 2018-12-08 18:46 | Emergency (ER) | payer OTHER ==
--- NOTE | 2018-12-08 19:26 | ERPHSYRPT ---
- History of Present Illness Time Seen by Provider: 12/08/18 19:25 Historian: patient Exam Limitations: no limitations Patient Subjective Stated Complaint: pt states she has been having lower abd pain and bilat flank pain for approx 3 days. states she has increased pain when voiding. also has been having nausea and vomiting for 3 days Triage Nursing Assessment: pt alert and oriented, asnwers questions approp. pt ambulatory with steady gait noted. respirations nonlabored with lungs cta. abd soft and nontender to light palpation. bowel sounds hypo x4 quads. Physician History: 28 y/o white female with 3 day h/o bilat flank pain and assoc suprapubic pain and dysuria. pt has had a btl in past. pt gets frequent utis and these sx are typical for her. no vag discharge, no n/v/d. Timing/Duration: day(s) (3) Quality: burning, sharpness, stabbing Abdominal Pain Onset Location: flank (bilat) Pain Radiation: flank Severity of Pain-Max: moderate Severity of Pain-Current: moderate Associated Symptoms: No diarrhea, No fever/chills, No nausea, No shortness of breath, No vomiting, No weakness Previous symptoms: same symptoms as today Allergies/Adverse Reactions: cefixime [From Suprax] Allergy (Intermediate, Verified 12/08/18 19:23) Hives Home Medications: No Home Meds [No Home Meds] 1 [facility] 03/10/17 [History] Hx Tetanus, Diphtheria Vaccination/Date Given: Yes Hx Influenza Vaccination/Date Given: No Hx Pneumococcal Vaccination/Date Given: No Immunizations Up to Date: Yes - Review of Systems Constitutional: No Symptoms Eyes: No Symptoms Ears, Nose, & Throat: No Symptoms Respiratory: No Symptoms Cardiac: No Symptoms Abdominal/Gastrointestinal: Abdominal Pain (mild suprapubic) Genitourinary Symptoms: Dysuria, Frequency, Flank Pain (bilat) Musculoskeletal: No Symptoms Skin: No Symptoms Neurological: No Symptoms Psychological: No Symptoms Endocrine: No Symptoms Hematologic/Lymphatic: No Symptoms Immunological/Allergic: No Symptoms All Other Systems: Reviewed and Negative - Past Medical History Pertinent Past Medical History: Yes Neurological History: No Pertinent History ENT History: No Pertinent History Cardiac History: No Pertinent History Respiratory History: Asthma Endocrine Medical History: No Pertinent History Musculoskeletal History: No Pertinent History GI Medical History: GERD History: No Pertinent History Psycho-Social History: Anxiety, Depression Female Reproductive Disorders: No Pertinent History - Past Surgical History Past Surgical History: Yes Neuro Surgical History: No Pertinent History Cardiac: No Pertinent History Respiratory: No Pertinent History Gastrointestinal: No Pertinent History Genitourinary: No Pertinent History Musculoskeletal: No Pertinent History Female Surgical History: Section, Tubal Ligation Other Surgical History: X 3 - Social History Smoking Status: Current every day smoker How long have you smoked: 12 years Exposure to second hand smoke: Yes Drug Use: none Patient Lives Alone: No - Female History Hx Last Menstrual Period: 2 weeks Hx Now: No - Nursing Vital Signs Nursing Vital Signs: Initial Vital Signs Temperature 98.1 F 12/08/18 19:12 Pulse Rate 78 12/08/18 19:12 Respiratory Rate 16 12/08/18 19:12 Blood Pressure 135/84 12/08/18 19:12 O2 Sat by Pulse Oximetry 100 12/08/18 19:12 Pain Scale Pain Intensity 9 - Physical Exam SpO2: 100 Ordered Tests: Active Orders 24 hr Category Date Time Status CULTURE,URINE Stat Lab 12/08/18 19:39 Received HCG,QUALITATIVE URINE Stat Lab 12/08/18 19:39 Completed UA W/RFX UR CULTURE Stat Lab 12/08/18 19:39 Completed Medication Summary Generic Name Dose Route Start Last Admin Trade Name Daronq PRN Reason Stop Dose Admin Hydrocodone Bitart/Acetaminophen 1 tab 12/08/18 20:06 [place] 5/325 Mg PO 12/08/18 20:07 STAT ONE Phenazopyridine HCl 200 mg 12/08/18 20:06 Pyridium 200 Mg PO 12/08/18 20:07 STAT ONE Trimethoprim/Sulfamethoxazole 1 tab 12/08/18 20:04 Bactrim Ds Tablet PO 12/08/18 20:05 STAT STA Lab/Rad Data: Laboratory Results 12/08/18 12/08/18 Range/Units 19:39 19:39 Urine Color YELLOW (YELLOW) Urine Appearance CLOUDY (CLEAR) Urine pH 6.0 (5-6) Ur Specific [place] 1.023 (1.005-1.025) Urine Protein NEGATIVE (Negative) Urine Ketones TRACE (NEGATIVE) Urine Blood NEGATIVE (0-5) Edgard/ul Urine Nitrite NEGATIVE (NEGATIVE) Urine Bilirubin NEGATIVE (NEGATIVE) Urine Urobilinogen NEGATIVE (0-1) mg/dL Ur Leukocyte Esterase SMALL (NEGATIVE) Urine WBC (Auto) 11-15 (0-5) /HPF Urine RBC (Auto) 3-5 (0-2) /HPF U Epithel Cells (Auto) FEW (FEW) /HPF Urine Bacteria (Auto) RARE (NEGATIVE) /HPF Urine Mucus (Auto) MODERATE (NEGATIVE) /HPF Urine Culture Reflexed YES (NO) Urine Glucose NEGATIVE (NEGATIVE) mg/dL Urine HCG, Qual NEGATIVE (Negative) - Progress Progress: unchanged Counseled pt/family regarding: lab results, diagnosis, need for follow-up - Departure Departure Disposition: Home Clinical Impression: UTI (urinary tract infection) Condition: Stable Critical Care Time: No Referrals: SAULO GONG [Primary Care Provider] - Additional Instructions: drink plenty fluids. follow up with primary doctor for persistent symptoms. Prescriptions: Phenazopyridine HCl 200 mg [Pyridium 200 mg] 200 mg PO TID #6 tablet Smz/Tmp Ds Tablet [Bactrim Ds Tablet] 1 udtab PO BID #14 tablet
[2018-12-08 19:43] LABS: Appearance CLOUDY (CLEAR); Bacteria RARE /HPF (NEGATIVE); Bilirubin NEGATIVE (NEGATIVE); Blood NEGATIVE Ery/ul (0-5); Epithelial Cells FEW /HPF (FEW); Glucose NEGATIVE (NEGATIVE); Ketones TRACE (NEGATIVE); Leukocyte Esterase SMALL (NEGATIVE); Mucus MODERATE /HPF (NEGATIVE); Nitrite NEGATIVE (NEGATIVE); Protein,Urine Dip NEGATIVE (Negative); Specific Gravity 1.023 (1.005-1.025); Urobilinogen NEGATIVE mg/dL (0-1)
[2018-12-08 19:54] VITALS: PULSE 73
[2018-12-08] MEDS ORDERED: BACTRIM DS TABLET PO ONE (20:11)
[2018-12-08] MEDS ORDERED: PYRIDIUM 200 MG ONE (20:11)
[2018-12-08] MEDS ORDERED: NORCO 5/325 MG ONE (20:12)
[2018-12-08] MEDS: PYRIDIUM 200 MG PO ONE (20:20)
[2018-12-08] MEDS: BACTRIM DS TABLET PO STA (20:20)
[2018-12-08] MEDS: NORCO 5/325 MG PO ONE (20:20)
[2018-12-08 20:40] VITALS: BP 128/81; O2SAT 98
== END 2018-12-08 20:40 | disposition home or self-care (01) ==
LOC: ED 18:46
DX: N39.0 Urinary tract infection, site not specified (principal)
CPT/HCPCS: 81001; 84703; 87086; 99284; A9270-GY